=== PATIENT | male | born 1950 | race Caucasian/White ===

== ENCOUNTER 2017-02-19 10:16 | Emergency (ER) | payer MEDICARE, BC ==
[~2017-02-19 10:16] MED LIST: Sodium Chloride 0.9% 500 ML BAG ONE
[2017-02-19] MEDS ORDERED: methylPREDNISolone Sod Succ/PF 125 MG/2 ML VIAL ONE (10:45)
[2017-02-19] MEDS ORDERED: Sterile Water 10 ML ONE (10:46)
[2017-02-19 11:06] LABS: Mean Corpuscular HGB CONC 32.4 g/dL (32.0-36.0); Mean Corpuscular Hemoglobin 27.7 pg (27.0-31.0); Mean Corpuscular Volume 85.6 fl (80.0-94.0); Mean Platelet Volume 8.7 fL (7.4-10.4); Platelet Count 202 thou/uL (130-400); RBC Distribution Width 15.2 % (11.5-14.5); Red Blood Cell (RBC) Count 5.05 mill/uL (4.70-6.10); White Blood Cell (WBC) Count 16.1 thou/uL (4.8-10.8)
[2017-02-19 11:13] LABS: MDiff Complete? YES; Manual Diff?? YES
[2017-02-19 11:14] LABS: Band 19 % (5-11); Lymphocytes 21 % (21-51); Monocytes 14 % (0-10); Neutrophil 46 % (42-75); PLT Morphology Comment Appears Adequate
--- NOTE | 2017-02-19 11:16 | RAD ---
AP CHEST: Indication: Dyspnea. Comparison: None. FINDINGS: There is airspace opacity within the left perihilar region. Some of this may be related to subsegment al atelectasis as the patient did not take a very deep breath. No definite pleural effusion or pneumo thorax is evident. No acute osseous abnormality is evident. IMPRESSION: Patchy perihilar airspace opacity may be related to subsegmental atelectasis due to hyperventilation. Recommend repeat two view of the chest for further evaluation. POS: [facility]
[2017-02-19 11:17] LABS: CKMB 1.1 ng/mL (0-6.6); Troponin I 0.031 ng/mL (< 0.028)
[2017-02-19 11:18] LABS: ALT (SGPT) 13 U/L (8-55); AST (SGOT) 27 U/L (5-34); Albumin 4.1 g/dL (3.4-4.8); Alkaline Phosphatase 83 U/L (40-150); Anion Gap 19 mmol/L (10-20); BUN (Urea Nitrogen) 20 mg/dL (8.4-25.7); Bilirubin, Total 0.5 mg/dL (0.2-1.2); CK (CPK) 1048 U/L (30-200); Calc. Creatinine Clearance 0 mL/min (70-130); Calcium 9.2 mg/dL (7.8-10.44); Carbon Dioxide 23 mmol/L (23-31); Chloride 101 mmol/L (98-107); Estimated GFR-MDRD 55; Globulin 3.1 g/dL (2.4-3.5); Glucose 84 mg/dL (80-115); Potassium 4.2 mmol/L (3.5-5.1); Protein, Total 7.2 g/dL (5.8-8.1); Sodium 139 mmol/L (136-145)
[2017-02-19] MEDS ORDERED: Oseltamivir 75 MG CAP ONE (11:20)
[2017-02-19] MEDS ORDERED: Acetaminophen 500 MG TAB ONE (11:20)
[2017-02-19] MEDS ORDERED: Levofloxacin 500 mg/D5W 100 ml Premix Bag ONE (12:08)
[2017-02-19 12:38] LABS: Base Excess 1.5 mEq/L (-2 - +2); pH (venous) 7.44 (7.35-7.45)
[2017-02-19 12:39] LABS: Hemoglobin (Hb) 13.2 g/dL (12.6-17.4)
[2017-02-19] MEDS ORDERED: Sodium Chloride 0.9% 1,000 ML BAG ONE (14:19)
== END 2017-02-19 12:41 | disposition short-term general hospital (02) ==
LOC: MADERS 10:16
DX: J11.00 Influenza due to unidentified influenza virus with unspecified type of pneumonia (principal); R79.89 Other specified abnormal findings of blood chemistry; Z79.899 Other long term (current) drug therapy
CPT/HCPCS: 36415; 71045; 80053; 82550; 82553; 82805; 83880; 84484; 85025; 87040; 93005; 96361; 96374; A4216; J1956; J2930; J7050; J7620

== ENCOUNTER 2017-04-19 13:25 | Emergency (ER) | payer MEDICARE, BC ==
[~2017-04-19 13:25] MED LIST changes: +Sodium Chloride 0.9% 100 ML BAG ONE; -Sodium Chloride 0.9% 500 ML BAG ONE
[2017-04-19] MEDS ORDERED: Magnesium Sulfate 2 GM/NS 0.9% 50 ML BAG ONE (14:16)
[2017-04-19] MEDS ORDERED: methylPREDNISolone Sod Succ/PF 125 MG/2 ML VIAL ONE (14:16)
[2017-04-19] MEDS ORDERED: Dexamethasone 10 MG/ML VIAL ONE (14:16)
[2017-04-19 14:18] LABS: #Basophils 0.1 thou/uL (0.0-0.2); #Eosinphils 0.1 thou/uL (0.0-0.7); #Lymphocytes 3.5 thou/uL (1.20-3.40); #Monocytes 1.1 thou/uL (0.11-0.59); #Neutrophils 6.2 thou/uL (1.40-6.50); %Eosinophils 0.9 % (0.0-10.0); %Lymphocytes 31.5 % (21.0-51.0); %Monocytes 10.2 % (0.0-10.0); %Neutrophils 56.4 % (42.0-75.0); Hemoglobin 14.4 g/dL (14.0-18.0); Mean Corpuscular HGB CONC 31.1 g/dL (32.0-36.0); Mean Corpuscular Hemoglobin 27.6 pg (27.0-31.0); Mean Corpuscular Volume 88.6 fl (80.0-94.0); Mean Platelet Volume 8.9 fL (7.4-10.4); Platelet Count 208 thou/uL (130-400); RBC Distribution Width 16.2 % (11.5-14.5); Red Blood Cell (RBC) Count 5.22 mill/uL (4.70-6.10)
[2017-04-19 14:30] LABS: ALT (SGPT) 27 U/L (8-55); AST (SGOT) 25 U/L (5-34); Albumin 4.3 g/dL (3.4-4.8); Alkaline Phosphatase 68 U/L (40-150); Anion Gap 18 mmol/L (10-20); BUN (Urea Nitrogen) 13 mg/dL (8.4-25.7); Bilirubin, Total 0.4 mg/dL (0.2-1.2); Calc. Creatinine Clearance 0 mL/min (70-130); Calcium 9.5 mg/dL (7.8-10.44); Carbon Dioxide 24 mmol/L (23-31); Chloride 102 mmol/L (98-107); Estimated GFR-MDRD 68; Globulin 3.6 g/dL (2.4-3.5); Glucose 83 mg/dL (80-115); Potassium 4.1 mmol/L (3.5-5.1); Protein, Total 7.9 g/dL (5.8-8.1); Sodium 140 mmol/L (136-145)
[2017-04-19] MEDS ORDERED: cefTRIAXone\\ROCEPHIN 2 GM VIAL ONE (14:49)
--- NOTE | 2017-04-19 14:54 | RAD ---
PORTABLE CHEST 1 VIEW: Date: 04/19/17 Time: 1413 hours HISTORY: Dyspnea. FINDINGS/IMPRESSION: Comparison made with exam of 03/30/17. The heart size is stable. Chronic changes in the lung orozco are again seen. No lobar consolidation, pneumothoraces, or large effusions are identified. POS: [facility]
== END 2017-04-19 15:52 | disposition short-term general hospital (02) ==
LOC: MADERS 13:25
DX: J70.3 Chronic drug-induced interstitial lung disorders (principal); T45.1X5A Adverse effect of antineoplastic and immunosuppressive drugs, initial encounter; R09.02 Hypoxemia; C81.90 Hodgkin lymphoma, unspecified, unspecified site; M17.12 Unilateral primary osteoarthritis, left knee; Z87.891 Personal history of nicotine dependence; Z79.82 Long term (current) use of aspirin; Z79.899 Other long term (current) drug therapy
CPT/HCPCS: 71045; 80053; 83605; 84443; 85025; 85652; 85730; 87040; 87149; 96365; 96375; J0696; J1100; J2930; J3475; J7050; J7620

== ENCOUNTER 2017-10-23 13:29 | Outpatient (CLI) | payer MEDICARE, BC ==
[2017-10-23 14:09] LABS: ALT (SGPT) 14 U/L (8-55); AST (SGOT) 14 U/L (5-34); Albumin 4.3 g/dL (3.4-4.8); Alkaline Phosphatase 84 U/L (40-150); Bilirubin, Direct 0.1 mg/dL (0.1-0.3); Bilirubin, Total 0.3 mg/dL (0.2-1.2); Cardiac Risk 5.9 (Less than 4.5); Cholesterol 285 mg/dl (< 200 Desired); HDL Cholesterol 48 mg/dL (>60 Neg Risk); LDL Cholesterol, Calculated 164 mg/dL; Protein, Total 7.7 g/dL (5.8-8.1); Triglycerides 367 mg/dL (Less than 150)
== END 2017-10-23 13:30 | disposition home or self-care (01) ==
LOC: MADLABBHPM 13:29
PROVIDERS: ATTEND Internal Medicine Cardiovascular Disease
DX: F17.290 Nicotine dependence, other tobacco product, uncomplicated (principal); I10 Essential (primary) hypertension; E66.8 Other obesity
CPT/HCPCS: 36415; 80061; 80076

== ENCOUNTER 2018-01-20 09:06 | Outpatient (CLI) | payer MEDICARE, BC ==
[2018-01-20 10:00] LABS: Hemoglobin 12.1 g/dL (14.0-18.0); Mean Corpuscular HGB CONC 30.9 g/dL (32.0-36.0); Mean Corpuscular Volume 87.5 fL (78.0-98.0); Platelet Count 310 thou/uL (130-400); RBC Distribution Width 13.9 % (11.5-14.5); White Blood Cell (WBC) Count 14.4 thou/uL (4.8-10.8)
== END 2018-01-20 09:07 | disposition home or self-care (01) ==
LOC: MADLABBHPM 09:06
PROVIDERS: ATTEND Family Medicine
DX: J44.1 Chronic obstructive pulmonary disease with (acute) exacerbation (principal); J84.9 Interstitial pulmonary disease, unspecified
CPT/HCPCS: 36415; 85027

== ENCOUNTER 2018-02-21 11:52 | Emergency (ER) | payer MEDICARE, BC ==
[2018-02-21 12:31] LABS: Hemoglobin 14.2 g/dL (14.0-18.0); Mean Corpuscular HGB CONC 30.3 g/dL (32.0-36.0); Mean Corpuscular Hemoglobin 26.3 pg (27.0-31.0); Mean Corpuscular Volume 86.8 fL (78.0-98.0); Mean Platelet Volume 9.7 fL (7.4-10.4); Platelet Count 263 thou/uL (130-400); RBC Distribution Width 14.2 % (11.5-14.5); Red Blood Cell (RBC) Count 5.39 mill/uL (4.70-6.10); White Blood Cell (WBC) Count 17.8 thou/uL (4.8-10.8)
[2018-02-21 12:35] LABS: ALT (SGPT) 15 U/L (8-55); AST (SGOT) 18 U/L (5-34); Albumin 4.5 g/dL (3.4-4.8); Alkaline Phosphatase 115 U/L (40-150); Anion Gap 18 mmol/L (10-20); BUN (Urea Nitrogen) 15 mg/dL (8.4-25.7); Bilirubin, Total 0.4 mg/dL (0.2-1.2); Calc. Creatinine Clearance 0 mL/min (70-130); Calcium 10.5 mg/dL (7.8-10.44); Carbon Dioxide 23 mmol/L (23-31); Chloride 103 mmol/L (98-107); Estimated GFR-MDRD 71; Globulin 4.2 g/dL (2.4-3.5); Glucose 78 mg/dL (80-115); Potassium 4.1 mmol/L (3.5-5.1); Protein, Total 8.7 g/dL (5.8-8.1); Sodium 140 mmol/L (136-145)
[2018-02-21 12:36] LABS: Band 2 % (5-11); Lymphocytes 30 % (21-51); MDiff Complete? YES; Manual Diff?? YES; Neutrophil 56 % (42-75); Reactive Lymphocytes 5 % (0-10)
[2018-02-21 12:37] LABS: Anisocytosis SLIGHT = 6-15 cells (100X) (0-5/hpf); Eosinophils 1 % (0-10); Monocytes 6 % (0-10); Platelet Morphology Comment Appears Adequate
--- NOTE | 2018-02-21 13:14 | RAD ---
CHEST 1 VIEW: COMPARISON: 01/17/2018. HISTORY: Dyspnea. FINDINGS: Normal cardiac silhouette. There are diffuse interstitial opacities throughout the lung parenchyma w ith more focal alveolar opacity in the left mid lung. Costophrenic angles are clear. No consolidati on or masses. NO pneumothorax or osseous abnormalities. IMPRESSION: Diffuse interstitial opacities with multifocal alveolar infiltrates. Continued surveillance is recom mended. POS: [facility]
[2018-02-21] MEDS ORDERED: methylPREDNISolone Sod Succ/PF 125 MG/2 ML VIAL ONE (14:35)
[2018-02-21] MEDS ORDERED: cefTRIAXone\\ROCEPHIN 2 GM VIAL ONE (14:47)
--- NOTE | 2018-02-21 15:24 | CT ---
CT ANGIOGRAM CHEST WITH CONTRAST: HISTORY: Dyspnea. Pulmonary fibrosis. Lymphoma. COMPARISON: Chest radiograph of 02/21/2018. TECHNIQUE: CT angiogram chest is performed after the intravenous administration of contrast. Three-D rendering is provided. There are chronic peripheral interstitial markings throughout the lungs. There appears to be a combination of emphysema as well as upper lobe predominant peripheral honeycombing. There is a mass in the anterior segment of the left upper lobe. There appears to be some new suture in the left upper lobe with some focal fluid collection, most likely a mass. No proximal segmental pulmonary arterial filling defect. No pericardial effusion. There is cholelit hiasis. The aortic contour is nonaneurysmal. There is a T8 vertebral body hemangioma. IMPRESSION: 1. No proximal segmental pulmonary arterial filling defect. 2. Emphysematous changes in the upper lobes with a superimposed honeycombing and fibrosis. Upper lob e predominant fibrosis can be seen with pulmonary sarcoidosis, Langerhans cell histiocytosis and pneu moconiosis versus atypical focal infections process such as histoplasmosis. Chronic hypertensive pne umonitis is also a possibility. 3. A nodule in the left upper lobe anterior segment with adjacent suture likely due to focal reactiv e round atelectasis and much less likely a mass. Followup can be obtained in 6 months. POS: [facility]
== END 2018-02-21 15:42 | disposition short-term general hospital (02) ==
LOC: MADERS 11:52
DX: J18.9 Pneumonia, unspecified organism (principal); J84.10 Pulmonary fibrosis, unspecified; Z87.891 Personal history of nicotine dependence; I50.9 Heart failure, unspecified; K21.9 Gastro-esophageal reflux disease without esophagitis; Z79.899 Other long term (current) drug therapy; Z79.51 Long term (current) use of inhaled steroids; Z79.82 Long term (current) use of aspirin
CPT/HCPCS: 71045; 71275; 80053; 83605; 83880; 84484; 85025; 85379; 87040; 93005; 94640; 96374; 96375; J0696; J2930; J7050; J7620

== ENCOUNTER 2019-07-01 10:23 | Outpatient (CLI) | payer MEDICARE, BC ==
[2019-07-01 11:09] LABS: ALT (SGPT) 14 U/L (8-55); AST (SGOT) 19 U/L (5-34); Albumin 4.1 g/dL (3.4-4.8); Alkaline Phosphatase 71 U/L (40-110); Bilirubin, Direct 0.2 mg/dL (0.1-0.3); Bilirubin, Total 0.4 mg/dL (0.2-1.2); Cardiac Risk 6.7 (Less than 4.5); Cholesterol 268 mg/dl (< 200 Desired); HDL Cholesterol 40 mg/dL (>60 Neg Risk); LDL Cholesterol, Calculated 195 mg/dL; Protein, Total 7.4 g/dL (5.8-8.1); Triglycerides 165 mg/dL (Less than 150)
== END 2019-07-01 10:24 | disposition home or self-care (01) ==
LOC: MADLAB 10:23
PROVIDERS: ATTEND Family Medicine
DX: R06.02 Shortness of breath (principal)
CPT/HCPCS: 36415; 80061; 80076

== ENCOUNTER 2024-12-29 15:01 | Outpatient (CLI) | payer MEDICARE, BC ==
[2024-12-29 15:43] LABS: ALT (SGPT) 8 U/L (Less than 45); AST (SGOT) 17 U/L (11-34); Albumin 3.5 g/dL (3.1-4.5); Alkaline Phosphatase 60 U/L (40-110); BUN (Urea Nitrogen) 17 mg/dL (8.4-25.7); Bilirubin, Direct 0.1 mg/dL (0.1-0.3); Bilirubin, Total 0.2 mg/dL (0.3-1.2); Calc. Creatinine Clearance 0 mL/min (70-130); Calcium 10.0 mg/dL (7.8-10.44); Carbon Dioxide 37 mmol/L (23-31); Cardiac Risk 2.6 (Less than 4.5); Cholesterol 169 mg/dl (< 200 Desired); Glucose 64 mg/dL (83-110); HDL Cholesterol 64 mg/dL (>60 Neg Risk); LDL Cholesterol, Calculated 89 mg/dL; Triglycerides 78 mg/dL (Less than 150)
[2024-12-29 15:51] LABS: Anion Gap 17 mmol/L (10-20); Chloride 96 mmol/L (98-107); Potassium 4.5 mmol/L (3.5-5.1); Sodium 145 mmol/L (136-145)
== END 2024-12-29 15:02 | disposition home or self-care (01) ==
LOC: MADLAB 15:01
PROVIDERS: ATTEND Internal Medicine Cardiovascular Disease
DX: E78.2 Mixed hyperlipidemia (principal)
CPT/HCPCS: 36415; 80048; 80061; 80076; 83880